=== PATIENT | male | born 1965 | race Caucasian/White ===

== ENCOUNTER → 2016-06-01 | Outpatient (REF) | payer MEDICARE | LOC: M LABDRWSH 15:37 | PROVIDERS: ATTEND Family Medicine | DX: R73.03 Prediabetes (principal); Z79.899 Other long term (current) drug therapy ==

== ENCOUNTER → 2016-07-11 | Outpatient (REF) | payer MEDICARE | LOC: M LAB REF 20:20 | PROVIDERS: ATTEND Physician Assistant | DX: M54.5 Low back pain (principal); N39.0 Urinary tract infection, site not specified ==

== ENCOUNTER → 2016-08-07 | Outpatient (REF) | payer MEDICARE ==
[2016-08-07 15:41] LABS: ALBUMIN 3.9 GM/DL (3.2-5.2); ALBUMIN/GLOBULIN RATIO 1.39 (1.00-1.93); BILIRUBIN,DIRECT 0.1 MG/DL (0.0-0.2); BILIRUBIN,TOTAL 0.3 MG/DL (0.2-1.0); TOTAL PROTEIN 6.7 GM/DL (6.4-8.2)
== END ==
LOC: M LABDRWSH 14:35
PROVIDERS: ATTEND Internal Medicine Gastroenterology
DX: R10.9 Unspecified abdominal pain (principal); R14.0 Abdominal distension (gaseous); K22.70 Barrett's esophagus without dysplasia

== ENCOUNTER → 2016-08-12 | Outpatient (CLI) | payer MEDICARE ==
[~2016-08-12] MED LIST: ISOVUE-370 76% 100ML VIAL (Q9967) As Ordered ONE
--- NOTE | 2016-08-12 10:37 | REP ---
MAXILLOFACIAL CT WITH CONTRAST: HISTORY: Right periorbital cellulitis. CONTRAST: Isovue 370, 75 mL. A left Tsering cell is present. Minimal mucosal thickening is present in the right maxillary sinus. The remaining sinuses are clear. The ostiomeatal units are patent. The middle and inferior nasal turbinates are partially paradoxical. There is minimal deviation of the nasal septum to the right superiorly and to the left inferiorly. A small spur is present arising from the left side of the nasal septum. This abuts the left middle and inferior nasal turbinates. The cribriform plate, medial alves of the orbits and optic canals are intact. The carotid canals form a segment of the posterolateral alves of the sphenoid sinus. Preseptal soft tissue swelling is present on the right. The contents of the orbits are normal Calcification is present in the left tonsil. This is secondary to previous inflammatory disease. Small lymph nodes less than 1 cm in size are present in the internal jugular chains, posterior triangles, submandibular and submental areas. IMPRESSION: 1. There is no acute or chronic sinusitis. 2. Right preseptal soft tissue swelling. Signed by Mario Negro MD 08/12/2016 10:45 A
== END ==
LOC: M RAD 09:45
PROVIDERS: ATTEND Family Medicine
DX: L03.213 Periorbital cellulitis (principal); R10.9 Unspecified abdominal pain; R14.0 Abdominal distension (gaseous); K22.70 Barrett's esophagus without dysplasia
CPT/HCPCS: 70487; 87338; 96372; G0463; Q9967

== ENCOUNTER → 2017-12-04 | Outpatient (CLI) | payer MEDICARE ==
[2017-12-04 12:41] LABS: BASO % 0.2 % (0.0-1.0); EOS # 0.1 10^3/uL (0.0-0.50); EOS % 1.3 % (0.0-3.0); HEMATOCRIT 44.6 % (42.0-52.0); HEMOGLOBIN 15.3 g/dl (13.5-17.5); IMMATURE GRANULOCYTE % 0.3 % (0-3.0); LYMPH # 2.4 10^3/uL (1.5-4.5); LYMPH % 26.2 % (24.0-44.0); MEAN CORPUSCULAR HEMOGLOBIN 31.1 pg (27.0-33.0); MEAN CORPUSCULAR HGB CONC 34.3 g/dl (32.0-36.5); MEAN CORPUSCULAR VOLUME 90.7 fl (80.0-96.0); MONO # 0.9 10^3/uL (0.0-0.8); MONO % 9.6 % (0.0-5.0); NEUTROPHILS # 5.7 10^3/uL (1.8-7.7); NEUTROPHILS % 62.4 % (36.0-66.0); PLATELET COUNT, AUTOMATED 204 10^3/uL (150-450); RED BLOOD COUNT 4.92 10^6/uL (4.30-6.10); RED CELL DISTRIBUTION WIDTH 13.8 % (11.5-14.5); WHITE BLOOD COUNT 9.1 10^3/uL (4.0-10.0)
[2017-12-04 13:00] LABS: ERYTHROCYTE SEDIMENTATION RATE 8 mm/hr (0-20)
[2017-12-04 13:03] LABS: ANION GAP 8 MEQ/L (8-16); BLOOD UREA NITROGEN 13 MG/DL (7-18); CALCIUM LEVEL 9.2 MG/DL (8.5-10.1); CARBON DIOXIDE LEVEL 31 MEQ/L (21-32); CHLORIDE LEVEL 105 MEQ/L (98-107); CREATININE FOR GFR 1.14 MG/DL (0.70-1.30); GLOMERULAR FILTRATION RATE > 60.0 (>56); GLUCOSE, FASTING 91 MG/DL (70-100); POTASSIUM SERUM 4.5 MEQ/L (3.5-5.1); SODIUM LEVEL 144 MEQ/L (136-145)
== END ==
LOC: M LAB 12:22
DX: R07.1 Chest pain on breathing (principal)
CPT/HCPCS: 71046

== ENCOUNTER → 2018-04-21 | Outpatient (REF) | payer MEDICARE | LOC: M SFHCPLAZ 15:26 | DX: R19.7 Diarrhea, unspecified (principal) ==

== ENCOUNTER → 2018-04-21 | Outpatient (CLI) | payer MEDICARE ==
[2018-04-21 19:15] LABS: ALBUMIN 4.3 GM/DL (3.2-5.2); ALT/SGPT 21 U/L (12-78); BILIRUBIN,TOTAL 0.2 MG/DL (0.2-1.0); BLOOD UREA NITROGEN 15 MG/DL (7-18); C REACTIVE PROTEIN QUANTITATIV < 0.30 MG/DL (0.00-0.30); CALCIUM LEVEL 9.3 MG/DL (8.5-10.1); CARBON DIOXIDE LEVEL 30 MEQ/L (21-32); CHLORIDE LEVEL 105 MEQ/L (98-107); CREATININE FOR GFR 1.17 MG/DL (0.70-1.30); GLOMERULAR FILTRATION RATE > 60.0 (>56); GLUCOSE, FASTING 126 MG/DL (70-100); POTASSIUM SERUM 4.3 MEQ/L (3.5-5.1); SODIUM LEVEL 140 MEQ/L (136-145); TOTAL PROTEIN 7.3 GM/DL (6.4-8.2)
== END ==
LOC: M LAB 16:11
PROVIDERS: ATTEND Student in an Organized Health Care Education/Training Program
DX: R19.7 Diarrhea, unspecified (principal)

== ENCOUNTER → 2018-04-25 | Outpatient (REF) | payer MEDICARE | LOC: M LAB REF 13:35 | DX: R19.7 Diarrhea, unspecified (principal) ==

== ENCOUNTER → 2018-05-05 | Outpatient (CLI) | payer MEDICARE ==
[2018-05-06 09:51] LABS: APPEARANCE, URINE CLEAR (CLEAR); BACTERIA, URINE AUTO NEGATIVE (NEGATIVE); BILIRUBIN, URINE AUTO NEGATIVE (NEGATIVE); BLOOD, URINE BLOOD NEGATIVE (NEGATIVE); COLOR, URINE STRAW (YELLOW); GLUCOSE, URINE (UA) AUTO NEGATIVE (NEGATIVE); KETONE, URINE AUTO NEGATIVE (NEGATIVE); LEUKOCYTE ESTERASE, URINE AUTO NEGATIVE (NEGATIVE); NITRITE, URINE AUTO NEGATIVE (NEGATIVE); PROTEIN, URINE AUTO NEGATIVE (NEGATIVE); RBC, URINE AUTO 1 /HPF (0-3); SPECIFIC GRAVITY URINE AUTO 1.005 (1.002-1.035); SQUAMOUS EPITHELIAL CELL UR AU 0 /HPF (0-6); UROBILINOGEN, URINE AUTO 0.2 mg/dL (0.0-2.0); WBC, URINE AUTO 0 /HPF (0-3)
[2018-05-10 15:26] LABS: ANCA-ATYPICAL <1:20 titer (Neg:<1:20); ANTI-SACCHAROMYCES CEREV. IgA <20.0 Units (0.0-24.9); ANTI-SACCHAROMYCES CEREV. IgG 22.7 Units (0.0-24.9); CYTOPLASMIC NEUTROP AB ANCA-C <1:20 titer (Neg:<1:20); PERINUCLEAR AB ANCA-P <1:20 titer (Neg:<1:20); TISSUE TRANSGLUTAMINASE IgA <2 U/mL (0-3)
== END ==
LOC: M LAB 17:07
PROVIDERS: ATTEND Student in an Organized Health Care Education/Training Program
DX: R10.31 Right lower quadrant pain (principal)
CPT/HCPCS: 36415; 81001; 86256; 86671; G0463

== ENCOUNTER → 2018-05-12 | Outpatient (REF) | payer MEDICARE | LOC: M SFHCPLAZ 14:17 | PROVIDERS: ATTEND Student in an Organized Health Care Education/Training Program | DX: R10.31 Right lower quadrant pain (principal) ==

== ENCOUNTER → 2018-07-05 | Outpatient (CLI) | payer MEDICARE ==
[2018-07-05 18:18] LABS: CHOLESTEROL RISK RATIO 4.794 (<5); PERCENT SATURATION 30.5 % (19.7-50.0)
[2018-07-08 10:15] LABS: ARSENIC BLOOD 4 ug/L (2-23); LEAD BLOOD 1 ug/dL (0-4); MERCURY BLOOD None Detected ug/L (0.0-14.9); TRANSFERRIN 214 mg/dL (200-370)
== END ==
LOC: M LAB 16:56
PROVIDERS: ATTEND Student in an Organized Health Care Education/Training Program
DX: R10.31 Right lower quadrant pain (principal); F17.210 Nicotine dependence, cigarettes, uncomplicated; K44.9 Diaphragmatic hernia without obstruction or gangrene; E78.5 Hyperlipidemia, unspecified; Z79.899 Other long term (current) drug therapy; Z87.19 Personal history of other diseases of the digestive system; G47.00 Insomnia, unspecified
CPT/HCPCS: 36415; 80061; 82150; 82175; 82728; 83550; 83655; 83690; 83825; 84466; 84600; G0480

== ENCOUNTER 2019-04-07 14:02 | Emergency (ER) | payer MEDICARE ==
[~2019-04-07] VITALS: Ht 170.2 cm; Wt 68.2 kg
[2019-04-07] MEDS ORDERED: PANT40TA3 (14:10)
[2019-04-07] MEDS ORDERED: HYDR4TAB (14:10)
[2019-04-07] MEDS ORDERED: LIDOCAINE 5% (LIDODERM) PATCH TD ONE (14:30)
[2019-04-07] MEDS ORDERED: KETOROLAC 30 MG/ML VIAL (J1885) IM ONE (14:30)
[2019-04-07] MEDS ORDERED: diazePAM 5 MG TAB PO ONE (14:30)
[2019-04-07 14:55] LABS: BASO % 0.4 % (0.0-1.0); EOS # 0.2 10^3/uL (0.0-0.5); EOS % 1.8 % (0.0-3.0); HEMATOCRIT 43.8 % (42.0-52.0); HEMOGLOBIN 14.6 g/dl (13.5-17.5); LYMPH # 2.3 10^3/uL (1.5-5.0); LYMPH % 27.1 % (24.0-44.0); MEAN CORPUSCULAR HEMOGLOBIN 30.5 pg (27.0-33.0); MEAN CORPUSCULAR HGB CONC 33.3 g/dl (32.0-36.5); MEAN CORPUSCULAR VOLUME 91.6 fl (80.0-96.0); MONO # 0.9 10^3/uL (0.0-0.8); MONO % 10.4 % (0.0-5.0); NEUTROPHILS % 60.1 % (36.0-66.0); PLATELET COUNT, AUTOMATED 208 10^3/uL (150-450); RED BLOOD COUNT 4.78 10^6/uL (4.30-6.10); WHITE BLOOD COUNT 8.4 10^3/uL (4.0-10.0)
[2019-04-07 15:17] LABS: ERYTHROCYTE SEDIMENTATION RATE 11 mm/hr (0-20)
[2019-04-07 15:49] LABS: APPEARANCE, URINE CLEAR (CLEAR); BACTERIA, URINE AUTO NEGATIVE (NEGATIVE); BILIRUBIN, URINE AUTO NEGATIVE (NEGATIVE); BLOOD, URINE BLOOD NEGATIVE (NEGATIVE); COLOR, URINE YELLOW (YELLOW); GLUCOSE, URINE (UA) AUTO NEGATIVE (NEGATIVE); KETONE, URINE AUTO TRACE mg/dL (NEGATIVE); LEUKOCYTE ESTERASE, URINE AUTO NEGATIVE (NEGATIVE); NITRITE, URINE AUTO NEGATIVE (NEGATIVE); PROTEIN, URINE AUTO NEGATIVE (NEGATIVE); RBC, URINE AUTO 1 /HPF (0-3); SPECIFIC GRAVITY URINE AUTO 1.017 (1.002-1.035); SQUAMOUS EPITHELIAL CELL UR AU 0 /HPF (0-6); UROBILINOGEN, URINE AUTO 0.2 mg/dL (0.0-2.0); WBC, URINE AUTO 0 /HPF (0-3)
[2019-04-07 15:53] VITALS: BP 137/70
[2019-04-07] MEDS ORDERED: **NOTE PATIENT COMMENT** MISC XX SCH (21:00)
== END 2019-04-07 16:06 | disposition home or self-care (01) ==
LOC: M ED 14:02
DX: M54.16 Radiculopathy, lumbar region (principal); F17.210 Nicotine dependence, cigarettes, uncomplicated
CPT/HCPCS: 36415; 81001; 85025; 85652; 86140; 96372; 99283; J1885

== ENCOUNTER → 2019-06-09 | Outpatient (CLI) | payer MEDICARE ==
[~2019-06-09] MED LIST changes: +HYDR4TAB; -ISOVUE-370 76% 100ML VIAL (Q9967) As Ordered ONE; +PANT40TA3
[2019-06-09 16:56] LABS: BILIRUBIN,TOTAL 0.2 MG/DL (0.2-1.0); CALCIUM LEVEL 9.1 MG/DL (8.5-10.1); CHOLESTEROL RISK RATIO 4.062 (<5); CREATININE FOR GFR 1.36 MG/DL (0.70-1.30); GLOMERULAR FILTRATION RATE 58.6 (>56); POTASSIUM SERUM 4.7 MEQ/L (3.5-5.1); TOTAL PROTEIN 7.1 GM/DL (6.4-8.2)
== END ==
LOC: M LAB 15:40
DX: Z86.39 Personal history of other endocrine, nutritional and metabolic disease (principal); Z79.899 Other long term (current) drug therapy

== ENCOUNTER → 2019-08-29 | Outpatient (CLI) | payer MEDICARE ==
[~2019-08-29] MED LIST changes: +PANT40TA29; -PANT40TA3
--- NOTE | 2019-08-29 15:06 | REP ---
MRI brain without contrast: History: Proximal headache. . Comparison study: No comparison brain MRI study. Technique: Axial and sagittal imaging planes are utilized for T1 and T2-weighted scans. Sequences include spin-echo, fast spin echo, FLAIR, and diffusion weighted sequences. MRI findings: No bony calvarial lesion is seen. Craniocervical junction and upper cervical cord are normal in appearance. There is no MR evidence of significant paranasal sinus disease. No intraorbital abnormality is seen. The lateral, third, and fourth ventricles are normal in size and position. Lacey-white differentiation pattern is intact above and below the tentorium. There is no evidence of intracranial hemorrhage. No mass, infarction, extra-axial fluid collection or midline shift is seen. No abnormal white matter lesion is seen. Impression: Negative noncontrast brain MRI study. Electronically Signed by Zay Clark MD 08/29/2019 02:58 P
== END ==
LOC: M RAD 13:36
PROVIDERS: ATTEND Obstetrics & Gynecology
DX: R51 Headache (principal)

== ENCOUNTER → 2020-05-06 | Outpatient (CLI) | payer MEDICARE ==
--- NOTE | 2020-05-06 15:51 | REPPI ---
INDICATION: G89.29 CHRONIC PAIN. COMPARISON: Comparison CT study thoracic spine September 20, 2014.. TECHNIQUE: Three views. FINDINGS: Subtle loss of anterior vertebral body height is noted on lateral radiographs at the T3 as seen on CT imaging from September 20, 2014 unchanged. There is mild discogenic spurring at the anterior aspect of the midthoracic vertebral bodies. Vertebral body heights are otherwise preserved. Alignment is normal. No paravertebral soft tissue mass is seen. The lungs are somewhat hyperinflated. Patient is status post lower cervical spine discectomy and fusion plating. Pedicles and posterior elements are intact. IMPRESSION: No acute abnormality. Mild old wedging anteriorly at T3. Status post is lower cervical spine fusion plating. Hyperinflation of the lung vigil noted incidentally. Mild degenerative disc changes. <Electronically signed by Michael Clark > 05/06/20 [id number]
--- NOTE | 2020-05-06 15:52 | REPPI ---
INDICATION: G89.29 CHRONIC PAIN. COMPARISON: None. TECHNIQUE: Five views. FINDINGS: Five views of the lumbar spine show straightening of the normal lumbar lordosis. Lumbar vertebral body heights are preserved. There is advanced degenerative disc disease at L4-5 with disc space narrowing, reactive sclerosis and anterior osteophyte formation. Less prominent discogenic spurring changes are noted at L3-4 and L2-3. There is no evidence of spondylolysis or spondylolisthesis. Pedicles and posterior elements are intact. Psoas margins appear intact. Sacrum and SI joints are unremarkable. No bony destructive lesion is seen. IMPRESSION: Degenerative disc disease changes most pronounced at L4-5 but also present at L3-4 and L2-3. Straightening. No acute abnormality. <Electronically signed by Michael Clark > 05/06/20 [id number]
== END ==
LOC: M PLAIMG 13:38
DX: M51.34 Other intervertebral disc degeneration, thoracic region (principal); M51.36 Other intervertebral disc degeneration, lumbar region; G89.29 Other chronic pain

== ENCOUNTER → 2020-05-06 | Outpatient (REF) | payer MEDICARE ==
[2020-05-06 18:37] LABS: APPEARANCE, URINE CLEAR (CLEAR); BACTERIA, URINE AUTO NEGATIVE (NEGATIVE); BILIRUBIN, URINE AUTO NEGATIVE (NEGATIVE); BLOOD, URINE BLOOD NEGATIVE (NEGATIVE); COLOR, URINE YELLOW (YELLOW); GLUCOSE, URINE (UA) AUTO NEGATIVE (NEGATIVE); KETONE, URINE AUTO NEGATIVE (NEGATIVE); LEUKOCYTE ESTERASE, URINE AUTO NEGATIVE (NEGATIVE); NITRITE, URINE AUTO NEGATIVE (NEGATIVE); PROTEIN, URINE AUTO NEGATIVE (NEGATIVE); RBC, URINE AUTO 0 /HPF (0-3); SPECIFIC GRAVITY URINE AUTO 1.009 (1.002-1.035); SQUAMOUS EPITHELIAL CELL UR AU 0 /HPF (0-6); UROBILINOGEN, URINE AUTO 0.2 mg/dL (0.0-2.0); WBC, URINE AUTO 0 /HPF (0-3)
== END ==
LOC: M SFHCPLAZ 13:27
PROVIDERS: ATTEND Family Medicine
DX: G89.29 Other chronic pain (principal)

== ENCOUNTER → 2020-05-17 | Outpatient (CLI) | payer MEDICARE ==
--- NOTE | 2020-05-17 11:02 | REPVR ---
PROCEDURE INFORMATION: Exam: MR Lumbar Spine Without Contrast. Exam date and time: 05/17/2020 10:49 AM Age: 54 years old Clinical indication: Other: Ddd lumbar w/ chronic pain ? cord compression TECHNIQUE: Imaging protocol: Multiplanar magnetic resonance images of the lumbar spine without intravenous contrast. COMPARISON: CR SPINE LS COMPLETE 05/06/2020 2:02 PM FINDINGS: Vertebrae: There is no fracture or listhesis. There are pronounced endplate signal changes at L4/5, with severe intervertebral disc space loss. Spinal cord: Normal signal. No cord compression. L1-L2: No significant disc disease. No significant spinal canal stenosis. No neural foraminal stenosis. L2-L3: No significant disc disease. No significant spinal canal stenosis. No neural foraminal stenosis. L3-L4: There is diffuse disc bulging. There is mild facet and ligamentous hypertrophy. There is mild bilateral neural foraminal narrowing. L4-L5: There is diffuse disc bulging. There is mild facet and ligamentous hypertrophy. There is moderate to severe right and mild left neural foraminal narrowing. L5-S1: There is diffuse disc bulging. There is mild facet hypertrophy. There is [id number] bilateral neural foraminal narrowing. Soft tissues: Unremarkable. IMPRESSION: 1. Pronounced endplate signal changes at L4/5, with severe intervertebral disc space loss. Although these findings may be degenerative in nature, discitis/osteomyelitis could have a similar appearance in the appropriate clinical setting. 2. Degenerative disc disease and spondylosis. At L4/5, disc bulging asymmetric to the right contributes to moderate to severe right neural foraminal narrowing, with potential compromise of the exiting right L4 nerve root. Electronically signed by: Allison Weston On 05/17/2020 11:02:33 AM
== END ==
LOC: M PLARAD 09:28
DX: M51.36 Other intervertebral disc degeneration, lumbar region (principal); G89.29 Other chronic pain

== ENCOUNTER → 2020-05-22 | Outpatient (CLI) | payer MEDICARE ==
[2020-05-22 18:23] LABS: BASO % 0.4 % (0.0-1.0); EOS # 0.1 10^3/uL (0.0-0.5); EOS % 1.1 % (0.0-3.0); HEMATOCRIT 41.9 % (42.0-52.0); HEMOGLOBIN 13.6 g/dl (13.5-17.5); LYMPH # 1.9 10^3/uL (1.5-5.0); MEAN CORPUSCULAR HEMOGLOBIN 29.4 pg (27.0-33.0); MEAN CORPUSCULAR HGB CONC 32.5 g/dl (32.0-36.5); MEAN CORPUSCULAR VOLUME 90.7 fl (80.0-96.0); MONO # 0.5 10^3/uL (0.0-0.8); MONO % 7.3 % (0.0-5.0); NEUTROPHILS # 4.9 10^3/uL (1.5-8.5); NEUTROPHILS % 65.9 % (36.0-66.0); PLATELET COUNT, AUTOMATED 224 10^3/uL (150-450); RED BLOOD COUNT 4.62 10^6/uL (4.30-6.10); WHITE BLOOD COUNT 7.4 10^3/uL (4.0-10.0)
[2020-05-22 19:11] LABS: ERYTHROCYTE SEDIMENTATION RATE 6 mm/hr (0-20)
== END ==
LOC: M LAB 16:08
DX: R93.89 Abnormal findings on diagnostic imaging of other specified body structures (principal); Z79.899 Other long term (current) drug therapy

== ENCOUNTER → 2020-06-17 | Outpatient (REF) | payer MEDICARE ==
[2020-06-17 15:24] LABS: APPEARANCE, URINE CLEAR (CLEAR); BACTERIA, URINE AUTO NEGATIVE (NEGATIVE); BILIRUBIN, URINE AUTO NEGATIVE (NEGATIVE); BLOOD, URINE BLOOD NEGATIVE (NEGATIVE); COLOR, URINE YELLOW (YELLOW); GLUCOSE, URINE (UA) AUTO NEGATIVE (NEGATIVE); KETONE, URINE AUTO NEGATIVE (NEGATIVE); LEUKOCYTE ESTERASE, URINE AUTO NEGATIVE (NEGATIVE); MUCUS, URINE SMALL (NEGATIVE); NITRITE, URINE AUTO NEGATIVE (NEGATIVE); PROTEIN, URINE AUTO NEGATIVE (NEGATIVE); RBC, URINE AUTO 0 /HPF (0-3); SPECIFIC GRAVITY URINE AUTO 1.014 (1.002-1.035); SQUAMOUS EPITHELIAL CELL UR AU 0 /HPF (0-6); UROBILINOGEN, URINE AUTO 0.2 mg/dL (0.0-2.0); WBC, URINE AUTO 0 /HPF (0-3)
[2020-06-17 16:09] LABS: BLOOD UREA NITROGEN 12 MG/DL (7-18); CALCIUM LEVEL 8.8 MG/DL (8.5-10.1); CARBON DIOXIDE LEVEL 29 MEQ/L (21-32); CHLORIDE LEVEL 104 MEQ/L (98-107); CREATININE FOR GFR 1.23 MG/DL (0.70-1.30); GLOMERULAR FILTRATION RATE > 60.0 (>56); GLUCOSE, FASTING 160 MG/DL (70-100); POTASSIUM SERUM 3.6 MEQ/L (3.5-5.1); SODIUM LEVEL 139 MEQ/L (136-145)
== END ==
LOC: M SFHCPLAZ 14:16
DX: R03.0 Elevated blood-pressure reading, without diagnosis of hypertension (principal); E07.9 Disorder of thyroid, unspecified

== ENCOUNTER → 2020-07-04 | Outpatient (REF) | payer MEDICARE ==
[2020-07-04 12:47] LABS: HEMATOCRIT 44.6 % (42.0-52.0); MEAN CORPUSCULAR HEMOGLOBIN 29.9 pg (27.0-33.0); MEAN CORPUSCULAR HGB CONC 33.6 g/dl (32.0-36.5); MEAN CORPUSCULAR VOLUME 88.8 fl (80.0-96.0); PLATELET COUNT, AUTOMATED 233 10^3/uL (150-450); RED BLOOD COUNT 5.02 10^6/uL (4.30-6.10); WHITE BLOOD COUNT 7.3 10^3/uL (4.0-10.0)
[2020-07-04 13:20] LABS: ERYTHROCYTE SEDIMENTATION RATE 6 mm/hr (0-20)
[2020-07-04 13:30] LABS: ALBUMIN 4.3 GM/DL (3.2-5.2); ALT/SGPT 17 U/L (12-78); BILIRUBIN,TOTAL 0.3 MG/DL (0.2-1.0); BLOOD UREA NITROGEN 15 MG/DL (7-18); CALCIUM LEVEL 9.4 MG/DL (8.5-10.1); CARBON DIOXIDE LEVEL 32 MEQ/L (21-32); CHLORIDE LEVEL 106 MEQ/L (98-107); CHOLESTEROL LEVEL 239 MG/DL (<200); CHOLESTEROL RISK RATIO 4.345 (<5); CREATININE FOR GFR 1.07 MG/DL (0.70-1.30); GLOMERULAR FILTRATION RATE > 60.0 (>56); GLUCOSE, FASTING 104 MG/DL (70-100); HDL CHOLESTEROL 55 MG/DL (>40); LDL CHOLESTEROL 172 MG/DL (<100); NON-HDL-C 184 MG/DL; POTASSIUM SERUM 5.3 MEQ/L (3.5-5.1); SODIUM LEVEL 142 MEQ/L (136-145); TOTAL PROTEIN 7.2 GM/DL (6.4-8.2); TRIGLYCERIDES LEVEL 61 MG/DL (<150)
== END ==
LOC: M SFHCADAM 10:56
PROVIDERS: ATTEND Family Medicine
DX: E78.5 Hyperlipidemia, unspecified (principal); R93.7 Abnormal findings on diagnostic imaging of other parts of musculoskeletal system; R06.02 Shortness of breath; F32.2 Major depressive disorder, single episode, severe without psychotic features; Z12.5 Encounter for screening for malignant neoplasm of prostate; F17.290 Nicotine dependence, other tobacco product, uncomplicated
CPT/HCPCS: 80053; 80061; 84439; 84443; 85027; 85652; 86140; 99406; G0103; G0463

== ENCOUNTER → 2020-07-12 | Outpatient (CLI) | payer MEDICARE | LOC: M LABSMTC 11:55 | DX: Z01.812 Encounter for preprocedural laboratory examination (principal); Z20.822 Contact with and (suspected) exposure to COVID-19; M47.26 Other spondylosis with radiculopathy, lumbar region ==

== ENCOUNTER → 2020-07-24 | Outpatient (CLI) | payer MEDICARE ==
--- NOTE | 2020-07-24 09:45 | PFTRPT ---
Height: 67.00 Inches Weight: 148.00 Lbs BSA: 1.78 Diagnosis: R06.02 DATE: 07/24/2020 ORDERING PHYSICIAN: Marquis Ontiveros MD Pre and post bronchodilator studies have excellent technical quality. Forced vital capacity is normal. FEV1 out of proportion. Obstructive index is therefore reduced. Expiratory limit of the flow-volume loop consistent with flow rate limitation. No significant bronchodilator response is identified. Total lung capacity is mildly elevated. Residual volume borderline for air trapping. Diffusing capacity is reduced and does not correct for alveolar volume. No hemoglobin available for correction. Airway resistance and conductance are normal. IMPRESSION: Mild to moderate obstructive ventilatory impairment with borderline air trapping and diffusing capacity impairment. No bronchodilator response. MTDD
== END ==
LOC: M CARPUL 08:46
PROVIDERS: ATTEND Family Medicine
DX: R06.02 Shortness of breath (principal)

== ENCOUNTER → 2020-08-20 | Outpatient (CLI) | payer MEDICARE ==
--- NOTE | 2020-08-20 12:12 | REP ---
INDICATION: DYSPNEA ON EXERTION COMPARISON: 12/04/2017. TECHNIQUE: PA/Lateral FINDINGS: Lungs: Clear, no infiltrate. Heart: Normal in size. Mediastinum: Mediastinal silhouette unremarkable. Pleural angles: Unremarkable.. Bones and soft tissues: Unremarkable. IMPRESSION: No acute pulmonary disease. <Electronically signed by Rell Lacey > 08/20/20 [id number]
== END ==
LOC: M WUC 11:39
PROVIDERS: ATTEND Family Medicine
DX: R06.00 Dyspnea, unspecified (principal)

== ENCOUNTER → 2020-08-22 | Outpatient (CLI) | payer MEDICARE ==
--- NOTE | 2020-08-22 15:44 | REP ---
INDICATION: POST OP SEROMA postoperative seroma of musculoskeletal structure after musculoskeletal procedure. Patient reports recent removal of a battery from the right side of the back. Checking scar site. COMPARISON: Comparison CT study 02 April 2016.. TECHNIQUE: Helical scanning is acquired and 3 mm axial images were reformatted. Coronal and sagittal MPR images were generated and reviewed. 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 There is degenerative disc disease at L4-5. The lung bases are clear on axial CT images. The liver and the spleen are normal in size homogeneous in texture. No abnormality is noted in the pancreas. Normal adrenal glands are seen. The kidneys are morphologically intact. Vascular calcification is noted in a normal caliber aorta. A normal retrocecal appendix is seen. Small and large bowel loops are unremarkable in the abdomen and pelvis. No abdominal wall defect is seen. Prior CT study from 2016 showed a implanted power plant with subcutaneous stimulator leads in place. This has been removed. The power plant was in the right anterolateral mid abdomen and the subcutaneous leads terminated over the mid lumbar spine just to the right of midline. On today's CT study there is no evidence of any retained lead fragment. There is no evidence of hematoma or seroma. No abnormal fluid collection is seen. Multiplanar re-formation bone window setting images demonstrate advanced degenerative disc disease at L4-5 with sclerosis and spur formation unchanged from the 2016 study. IMPRESSION: Status post neurostimulator removal. No evidence of hematoma or seroma. Fairly advanced degenerative disc disease is noted in the L4-5 level in the lumbar spine unchanged. <Electronically signed by Michael Clark > 08/22/20 [id number]
== END ==
LOC: M RAD 14:13
PROVIDERS: ATTEND Family Medicine
DX: M96.842 Postprocedural seroma of a musculoskeletal structure following a musculoskeletal system procedure (principal)

== ENCOUNTER → 2020-09-17 | Outpatient (CLI) | payer MEDICARE ==
--- NOTE | 2020-09-17 15:29 | REP ---
INDICATION: NICOTINE DEPENDENCE COMPARISON: 11/30/2008 TECHNIQUE: Axial noncontrast images from the thoracic inlet to the upper abdomen using low-dose lung screening technique (LDCT). FINDINGS: Lung vigil are well aerated and few scattered small non solid densities measuring up to approximately 4 mm are identified. No consolidation or further suspicious nodule or mass lesion appreciated. No pleural effusion. Tracheobronchial tree is patent. IMPRESSION: Lung-RADS category 2. Management recommendations include annual low-dose CT surveillance. <Electronically signed by Elkin Roberts > 09/17/20 [id number]
== END ==
LOC: M RAD 13:49
PROVIDERS: ATTEND Physician Assistant
DX: Z12.2 Encounter for screening for malignant neoplasm of respiratory organs (principal); F17.200 Nicotine dependence, unspecified, uncomplicated

== ENCOUNTER → 2020-11-26 | Outpatient (REF) | payer MEDICARE ==
[2020-11-26 19:59] LABS: ALBUMIN 4.2 GM/DL (3.2-5.2); ALT/SGPT 22 U/L (12-78); BILIRUBIN,TOTAL 0.4 MG/DL (0.2-1.0); BLOOD UREA NITROGEN 13 MG/DL (7-18); CALCIUM LEVEL 9.6 MG/DL (8.5-10.1); CARBON DIOXIDE LEVEL 32 MEQ/L (21-32); CHLORIDE LEVEL 105 MEQ/L (98-107); CHOLESTEROL LEVEL 170 MG/DL (<200); CREATININE FOR GFR 1.12 MG/DL (0.70-1.30); GLOMERULAR FILTRATION RATE > 60.0 (>56); GLUCOSE, FASTING 86 MG/DL (70-100); HDL CHOLESTEROL 55 MG/DL (>40); LDL CHOLESTEROL 97 MG/DL (<100); NON-HDL-C 115 MG/DL; POTASSIUM SERUM 4.3 MEQ/L (3.5-5.1); SODIUM LEVEL 142 MEQ/L (136-145); TOTAL PROTEIN 7.1 GM/DL (6.4-8.2); TRIGLYCERIDES LEVEL 89 MG/DL (<150)
== END ==
LOC: M SFHCADAM 15:13
PROVIDERS: ATTEND Family Medicine
DX: E78.5 Hyperlipidemia, unspecified (principal)
CPT/HCPCS: 80053; 80061; G0463

== ENCOUNTER → 2021-05-22 | Outpatient (REF) | payer MEDICARE ==
[2021-05-22 16:47] LABS: ALT/SGPT 20 U/L (12-78); BILIRUBIN,TOTAL 0.2 MG/DL (0.2-1.0); BLOOD UREA NITROGEN 13 MG/DL (7-18); CALCIUM LEVEL 9.3 MG/DL (8.5-10.1); CARBON DIOXIDE LEVEL 31 MEQ/L (21-32); CHLORIDE LEVEL 106 MEQ/L (98-107); CHOLESTEROL LEVEL 143 MG/DL (<200); CHOLESTEROL RISK RATIO 3.042 (<5); CREATININE FOR GFR 1.16 MG/DL (0.70-1.30); GLOMERULAR FILTRATION RATE > 60.0 (>56); GLUCOSE, FASTING 116 MG/DL (70-100); HDL CHOLESTEROL 47 MG/DL (>40); LDL CHOLESTEROL 86 MG/DL (<100); NON-HDL-C 96 MG/DL; POTASSIUM SERUM 4.5 MEQ/L (3.5-5.1); SODIUM LEVEL 139 MEQ/L (136-145); TOTAL PROTEIN 6.8 GM/DL (6.4-8.2); TRIGLYCERIDES LEVEL 51 MG/DL (<150)
== END ==
LOC: M SFHCADAM 13:14
PROVIDERS: ATTEND Family Medicine
DX: E78.5 Hyperlipidemia, unspecified (principal)

== ENCOUNTER → 2021-07-01 | Outpatient (REF) | payer MEDICARE ==
[2021-07-01 13:10] LABS: APPEARANCE, URINE CLEAR (CLEAR); BACTERIA, URINE AUTO NEGATIVE (NEGATIVE); BILIRUBIN, URINE AUTO NEGATIVE (NEGATIVE); BLOOD, URINE BLOOD NEGATIVE (NEGATIVE); COLOR, URINE YELLOW (YELLOW); GLUCOSE, URINE (UA) AUTO NEGATIVE (NEGATIVE); KETONE, URINE AUTO NEGATIVE (NEGATIVE); LEUKOCYTE ESTERASE, URINE AUTO NEGATIVE (NEGATIVE); NITRITE, URINE AUTO NEGATIVE (NEGATIVE); PROTEIN, URINE AUTO NEGATIVE (NEGATIVE); RBC, URINE AUTO 0 /HPF (0-3); SPECIFIC GRAVITY URINE AUTO 1.009 (1.002-1.035); SQUAMOUS EPITHELIAL CELL UR AU 0 /HPF (0-6); UROBILINOGEN, URINE AUTO 0.2 mg/dL (0.0-2.0); WBC, URINE AUTO 0 /HPF (0-3)
[2021-07-01 13:22] LABS: BASO % 0.3 % (0.0-1.0); EOS # 0.1 10^3/uL (0.0-0.5); HEMATOCRIT 45.7 % (42.0-52.0); HEMOGLOBIN 15.2 g/dl (13.5-17.5); LYMPH # 2.2 10^3/uL (1.5-5.0); LYMPH % 22.2 % (24.0-44.0); MEAN CORPUSCULAR HEMOGLOBIN 30.3 pg (27.0-33.0); MEAN CORPUSCULAR HGB CONC 33.3 g/dl (32.0-36.5); MEAN CORPUSCULAR VOLUME 91.2 fl (80.0-96.0); MONO # 0.8 10^3/uL (0.0-0.8); MONO % 8.2 % (2.0-8.0); NEUTROPHILS # 6.7 10^3/uL (1.5-8.5); NEUTROPHILS % 68.1 % (36.0-66.0); PLATELET COUNT, AUTOMATED 238 10^3/uL (150-450); RED BLOOD COUNT 5.01 10^6/uL (4.30-6.10); WHITE BLOOD COUNT 9.8 10^3/uL (4.0-10.0)
[2021-07-01 13:31] LABS: INR 1.01; PROTHROMBIN TIME 13.7 SECONDS (12.7-14.5)
[2021-07-01 14:47] LABS: BLOOD UREA NITROGEN 13 MG/DL (7-18); CALCIUM LEVEL 9.7 MG/DL (8.5-10.1); CARBON DIOXIDE LEVEL 34 MEQ/L (21-32); CHLORIDE LEVEL 104 MEQ/L (98-107); GLOMERULAR FILTRATION RATE > 60.0 (>56); GLUCOSE, FASTING 100 MG/DL (70-100); POTASSIUM SERUM 4.3 MEQ/L (3.5-5.1); SODIUM LEVEL 142 MEQ/L (136-145)
== END ==
LOC: M SFHCADAM 10:27
PROVIDERS: ATTEND Family Medicine
DX: Z01.818 Encounter for other preprocedural examination (principal); J43.8 Other emphysema

== ENCOUNTER → 2021-07-01 | Outpatient (CLI) | payer MEDICARE | LOC: M ADAMS 10:35 | PROVIDERS: ATTEND Family Medicine | DX: Z01.818 Encounter for other preprocedural examination (principal); K22.70 Barrett's esophagus without dysplasia; J43.8 Other emphysema; Z79.899 Other long term (current) drug therapy ==

== ENCOUNTER 2021-08-29 19:35 | Emergency (ER) | payer MEDICARE ==
[~2021-08-29] VITALS: Ht 170.2 cm; Wt 72.7 kg
[2021-08-29] MEDS ORDERED: GABA-283 PO (20:18)
[2021-08-29] MEDS ORDERED: ATOR40TA75 PO (20:20)
[2021-08-29] MEDS ORDERED: METH-1164 PO (20:20)
[2021-08-29] MEDS ORDERED: CYCL-707 PO (20:20)
[2021-08-29] MEDS ORDERED: LAMO100T3 PO (20:20)
[2021-08-29 20:21] VITALS: BP 137/69
[2021-08-30] MEDS ORDERED: MEDR4PAK PO (01:05)
== END 2021-08-30 01:22 | disposition home or self-care (01) ==
LOC: M ED 19:35
DX: S30.0XXA Contusion of lower back and pelvis, initial encounter (principal); M54.30 Sciatica, unspecified side; W18.30XA Fall on same level, unspecified, initial encounter

== ENCOUNTER → 2021-09-30 | Outpatient (CLI) | payer MEDICARE ==
[~2021-09-30] MED LIST changes: +ATOR40TA75 PO; +CYCL-707 PO; +GABA-283 PO; +LAMO100T3 PO; +MEDR4PAK PO; +METH-1164 PO
== END ==
LOC: M RAD 13:07
PROVIDERS: ATTEND Physician Assistant
DX: Z12.2 Encounter for screening for malignant neoplasm of respiratory organs (principal); Z87.891 Personal history of nicotine dependence

== ENCOUNTER → 2021-10-14 | Outpatient (REF) | payer MEDICARE | LOC: M LAB REF 16:30 | PROVIDERS: ATTEND Physician Assistant Medical | DX: J02.9 Acute pharyngitis, unspecified (principal) ==

== ENCOUNTER → 2022-02-16 | Outpatient (REF) | payer MEDICARE ==
[2022-02-16 17:57] LABS: ALBUMIN 4.2 GM/DL (3.2-5.2); ALT/SGPT 28 U/L (12-78); BILIRUBIN,TOTAL 0.4 MG/DL (0.2-1.0); BLOOD UREA NITROGEN 20 MG/DL (7-18); CALCIUM LEVEL 9.3 MG/DL (8.5-10.1); CARBON DIOXIDE LEVEL 29 MEQ/L (21-32); CHLORIDE LEVEL 102 MEQ/L (98-107); CHOLESTEROL LEVEL 161 MG/DL (<200); CHOLESTEROL RISK RATIO 3.096 (<5); CREATININE FOR GFR 1.19 MG/DL (0.70-1.30); GLOMERULAR FILTRATION RATE > 60.0 (>56); GLUCOSE, FASTING 142 MG/DL (70-100); HDL CHOLESTEROL 52 MG/DL (>40); LDL CHOLESTEROL 94 MG/DL (<100); NON-HDL-C 109 MG/DL; POTASSIUM SERUM 4.4 MEQ/L (3.5-5.1); SODIUM LEVEL 137 MEQ/L (136-145); TOTAL PROTEIN 6.9 GM/DL (6.4-8.2); TRIGLYCERIDES LEVEL 74 MG/DL (<150)
== END ==
LOC: M SFHCADAM 11:45
PROVIDERS: ATTEND Family Medicine
DX: E78.5 Hyperlipidemia, unspecified (principal)

== ENCOUNTER → 2022-02-25 | Outpatient (REF) | payer MEDICARE ==
[2022-02-25 21:02] LABS: HEMOGLOBIN A1c 5.6 %
== END ==
LOC: M SFHCADAM 14:15
PROVIDERS: ATTEND Family Medicine
DX: R73.09 Other abnormal glucose (principal); E34.9 Endocrine disorder, unspecified

== ENCOUNTER → 2022-10-01 | Outpatient (CLI) | payer MEDICARE | LOC: M RAD 13:20 | PROVIDERS: ATTEND Family Medicine | DX: G90.01 Carotid sinus syncope (principal) ==

== ENCOUNTER → 2022-10-01 | Outpatient (CLI) | payer MEDICARE | LOC: M RAD 13:18 | PROVIDERS: ATTEND Physician Assistant | DX: M54.2 Cervicalgia (principal); Z87.891 Personal history of nicotine dependence ==

== ENCOUNTER → 2023-03-04 | Outpatient (REF) | payer MEDICARE ==
[~2023-03-04] MED LIST changes: -GABA-283 PO; +GABA-284 PO
[2023-03-04 18:41] LABS: HEMATOCRIT 44.6 % (42.0-52.0); HEMOGLOBIN 14.8 g/dl (13.5-17.5); MEAN CORPUSCULAR HEMOGLOBIN 30.8 pg (27.0-33.0); MEAN CORPUSCULAR HGB CONC 33.2 g/dl (32.0-36.5); MEAN CORPUSCULAR VOLUME 92.7 fl (80.0-96.0); PLATELET COUNT, AUTOMATED 238 10^3/uL (150-450); RED BLOOD COUNT 4.81 10^6/uL (4.30-6.10); WHITE BLOOD COUNT 8.6 10^3/uL (4.0-10.0)
[2023-03-04 19:05] LABS: ALBUMIN 4.3 G/DL (3.2-5.2); ALKALINE PHOSPHATASE 57 U/L (46-116); ALT/SGPT 27 U/L (7.0-40); AST/SGOT 28 U/L (<34); BILIRUBIN,TOTAL 0.3 MG/DL (0.3-1.2); BLOOD UREA NITROGEN 21 MG/DL (9-23); CALCIUM LEVEL 9.7 MG/DL (8.5-10.1); CARBON DIOXIDE LEVEL 32 MMOL/L (20-31); CHLORIDE LEVEL 106 MMOL/L (98-107); CHOLESTEROL LEVEL 167 MG/DL (<200); CHOLESTEROL RISK RATIO 3.35 (<5); CREATININE FOR GFR 1.28 MG/DL (0.70-1.30); GLOMERULAR FILTRATION RATE > 60.0 (>56); GLUCOSE, FASTING 52 MG/DL (60-100); HDL CHOLESTEROL 49.8 MG/DL (>40); LDL CHOLESTEROL 90.2 MG/DL (<100); NON-HDL-C 117.2 MG/DL; POTASSIUM SERUM 4.8 MMOL/L (3.5-5.1); SODIUM LEVEL 143 MMOL/L (136-145); TOTAL PROTEIN 6.8 G/DL (5.7-8.2); TRIGLYCERIDES LEVEL 135 MG/DL (<150)
== END ==
LOC: M SFHCADAM 15:07
PROVIDERS: ATTEND Family Medicine
DX: G90.01 Carotid sinus syncope (principal); E78.5 Hyperlipidemia, unspecified; Z12.5 Encounter for screening for malignant neoplasm of prostate
CPT/HCPCS: 80053; 80061; 85027; G0103

== ENCOUNTER 2023-06-17 09:11 | Day surgery (SDC) | payer MEDICARE ==
[~2023-06-17] VITALS: Ht 170.2 cm; Wt 73.1 kg
[~2023-06-17 09:11] MED LIST changes: +ALBU8.5H INH; +FLUT1BLS8 INH; +GABA-282 PO; +PANT40TA29 PO
[2023-06-17] MEDS: NS 1,000 ML IV ONE (09:36)
[2023-06-17] MEDS ORDERED: fentaNYL 100 MCG/2 ML INJECTION As Ordered ONE (10:45)
[2023-06-17] MEDS ORDERED: LIDOCAINE 2% 100MG/5ML SDV (FOR ANES.) As Ordered ONE (10:46)
[2023-06-17] MEDS ORDERED: propofoL 500 MG/50 ML VIAL As Ordered ONE (10:46)
[2023-06-17 11:55] VITALS: BP 112/66; O2SAT 97
== END 2023-06-17 11:57 | disposition home or self-care (01) ==
LOC: M OPP 09:11
PROVIDERS: ATTEND Internal Medicine Gastroenterology
DX: Z12.11 Encounter for screening for malignant neoplasm of colon (principal); D12.4 Benign neoplasm of descending colon; D12.3 Benign neoplasm of transverse colon; K57.30 Diverticulosis of large intestine without perforation or abscess without bleeding; K64.8 Other hemorrhoids; K29.60 Other gastritis without bleeding; R10.13 Epigastric pain; K21.9 Gastro-esophageal reflux disease without esophagitis; Z86.010 Personal history of colon polyps; E78.00 Pure hypercholesterolemia, unspecified; Z79.899 Other long term (current) drug therapy; Z79.51 Long term (current) use of inhaled steroids
CPT/HCPCS: 43239; 45385; 88305; J3010

== ENCOUNTER → 2023-08-12 | Outpatient (CLI) | payer MEDICARE | LOC: M RAD 09:37 | PROVIDERS: ATTEND Family Medicine | DX: N50.812 Left testicular pain (principal) ==

== ENCOUNTER → 2023-08-18 | Outpatient (CLI) | payer MEDICARE ==
[~2023-08-18] MED LIST changes: +GASTROGRAFIN SOLUTION 30ML ONE; +ISOVUE-370 76% 100ML VIAL ONE
== END ==
LOC: M PLAIMG 09:19
PROVIDERS: ATTEND Nurse Practitioner Family
DX: K29.60 Other gastritis without bleeding (principal)

== ENCOUNTER → 2023-08-18 | Outpatient (CLI) | payer MEDICARE ==
[~2023-08-18] MED LIST changes: -GASTROGRAFIN SOLUTION 30ML ONE; -ISOVUE-370 76% 100ML VIAL ONE
[2023-08-18 09:35] LABS: BLOOD UREA NITROGEN 23 MG/DL (9-23); CREATININE FOR GFR 1.29 MG/DL (0.70-1.30); GLOMERULAR FILTRATION RATE > 60.0 (>56)
== END ==
LOC: M LAB 08:32
PROVIDERS: ATTEND Nurse Practitioner Family
DX: K29.70 Gastritis, unspecified, without bleeding (principal)

== ENCOUNTER → 2023-09-16 | Outpatient (CLI) | payer MEDICARE | LOC: M LAB 09:38 | PROVIDERS: ATTEND Nurse Practitioner Family | DX: E16.4 Increased secretion of gastrin (principal) ==

== ENCOUNTER → 2023-10-07 | Outpatient (REF) | payer MEDICARE | LOC: M LAB REF 12:51 | PROVIDERS: ATTEND Internal Medicine Gastroenterology | DX: R93.89 Abnormal findings on diagnostic imaging of other specified body structures (principal); R12 Heartburn; R19.7 Diarrhea, unspecified ==

== ENCOUNTER → 2024-02-21 | Outpatient (CLI) | payer MEDICARE ==
[~2024-02-21] MED LIST changes: +GABA-1172 PO; -GABA-282 PO
[2024-02-21 12:09] LABS: HEMATOCRIT 43.6 % (42.0-52.0); HEMOGLOBIN 14.9 g/dl (13.5-17.5); MEAN CORPUSCULAR HEMOGLOBIN 31.8 pg (27.0-33.0); MEAN CORPUSCULAR HGB CONC 34.2 g/dl (32.0-36.5); PLATELET COUNT, AUTOMATED 217 10^3/uL (150-450); RED BLOOD COUNT 4.69 10^6/uL (4.30-6.10); WHITE BLOOD COUNT 7.8 10^3/uL (4.0-10.0)
[2024-02-21 12:12] LABS: PSA SCREENING 1.84 NG/ML (< 4.00)
[2024-02-21 12:15] LABS: ALBUMIN 3.9 G/DL (3.2-5.2); ALKALINE PHOSPHATASE 67 U/L (40-129); ALT/SGPT 20 U/L (7.0-40); AST/SGOT 20 U/L (<34); BILIRUBIN,TOTAL 0.5 MG/DL (0.3-1.2); BLOOD UREA NITROGEN 15 MG/DL (9-23); CALCIUM LEVEL 10.3 MG/DL (8.5-10.1); CARBON DIOXIDE LEVEL 32 MMOL/L (20-31); CHLORIDE LEVEL 105 MMOL/L (98-107); CHOLESTEROL LEVEL 214 MG/DL (<200); CREATININE FOR GFR 1.04 MG/DL (0.70-1.30); GLOMERULAR FILTRATION RATE > 60.0 (>56); GLUCOSE, FASTING 122 MG/DL (60-100); HDL CHOLESTEROL 71.1 MG/DL (>40); LDL CHOLESTEROL 126.1 MG/DL (<100); NON-HDL-C 142.9 MG/DL; POTASSIUM SERUM 4.4 MMOL/L (3.5-5.1); SODIUM LEVEL 142 MMOL/L (136-145); TOTAL PROTEIN 6.8 G/DL (5.7-8.2); TRIGLYCERIDES LEVEL 84 MG/DL (<150)
[2024-02-21 12:17] LABS: FREE T4 1.22 NG/DL (0.89-1.76); THYROID STIMULATING HORMONE 2.529 uIU/ML (0.55-4.78)
[2024-02-21 12:40] LABS: HEMOGLOBIN A1c 5.7 % (4.0-6.0)
== END ==
LOC: M WUC 09:30
PROVIDERS: ATTEND Family Medicine
DX: Z13.1 Encounter for screening for diabetes mellitus (principal); Z12.5 Encounter for screening for malignant neoplasm of prostate; N52.9 Male erectile dysfunction, unspecified; K22.70 Barrett's esophagus without dysplasia; J43.8 Other emphysema; E78.5 Hyperlipidemia, unspecified
CPT/HCPCS: 36415; 80053; 80061; 83036; 84402; 84403; 84439; 84443; 85027; G0103

== ENCOUNTER → 2024-02-25 | Outpatient (CLI) | payer MEDICARE ==
[~2024-02-25] MED LIST changes: +CREO12CA PO; +FLOM0.4C39 PO; +K2 P1TAB PO; +LIDO5TD TD; +MAGN400C PO; +POTA99CA2 PO; +VITA100T91 PO; +VITA500C24 PO; +[UNRECOGNIZED DRUG - OTHER] OU
== END ==
LOC: M WUC 11:26
PROVIDERS: ATTEND Family Medicine
DX: F32.2 Major depressive disorder, single episode, severe without psychotic features (principal)

== ENCOUNTER 2024-02-27 03:18 | Inpatient (IN) | payer MEDICARE ==
[~2024-02-27] VITALS: Ht 170.2 cm; Wt 63.0 kg
[~2024-02-27 03:18] MED LIST changes: -CREO12CA PO; -FLOM0.4C39 PO; -K2 P1TAB PO; -LIDO5TD TD; -MAGN400C PO; -POTA99CA2 PO; -VITA100T91 PO; -VITA500C24 PO; -[UNRECOGNIZED DRUG - OTHER] OU
[2024-02-27 03:56] LABS: HEMATOCRIT 44.2 % (42.0-52.0); HEMOGLOBIN 15.3 g/dl (13.5-17.5); MEAN CORPUSCULAR HEMOGLOBIN 31.7 pg (27.0-33.0); MEAN CORPUSCULAR HGB CONC 34.6 g/dl (32.0-36.5); MEAN CORPUSCULAR VOLUME 91.7 fl (80.0-96.0); PLATELET COUNT, AUTOMATED 224 10^3/uL (150-450); RED BLOOD COUNT 4.82 10^6/uL (4.30-6.10); WHITE BLOOD COUNT 8.8 10^3/uL (4.0-10.0)
[2024-02-27 04:10] LABS: ETHYL ALCOHOL (ETHANOL) 0.219 % (0.000-0.010)
[2024-02-27 04:11] LABS: SALICYLATE LEVEL < 3.0 MG/DL (<30)
[2024-02-27 04:12] LABS: ALBUMIN 4.3 G/DL (3.2-5.2); ALKALINE PHOSPHATASE 66 U/L (40-129); ALT/SGPT 21 U/L (7.0-40); AST/SGOT 25 U/L (<34); BILIRUBIN,DIRECT 0.1 MG/DL (<0.4); BILIRUBIN,TOTAL 0.4 MG/DL (0.3-1.2); BLOOD UREA NITROGEN 14 MG/DL (9-23); CARBON DIOXIDE LEVEL 26 MMOL/L (20-31); CHLORIDE LEVEL 110 MMOL/L (98-107); CREATININE FOR GFR 1.02 MG/DL (0.70-1.30); GLOMERULAR FILTRATION RATE > 60.0 (>56); GLUCOSE, FASTING 91 MG/DL (60-100); POTASSIUM SERUM 4.6 MMOL/L (3.5-5.1); SODIUM LEVEL 143 MMOL/L (136-145); TOTAL PROTEIN 7.5 G/DL (5.7-8.2)
[2024-02-27 04:16] LABS: THYROID STIMULATING HORMONE 7.211 uIU/ML (0.55-4.78)
[2024-02-27 05:19] LABS: FREE T4 1.57 NG/DL (0.89-1.76)
[2024-02-27 06:56] LABS: AMPHETAMINES LEVEL URINE NEGATIVE (NEGATIVE); BARBITURATES URINE NEGATIVE (NEGATIVE); BENZODIAZEPINES URINE NEGATIVE (NEGATIVE); COCAINE METABOLITE URINE NEGATIVE (NEGATIVE); METHADONE URINE NEGATIVE (NEGATIVE); OPIATES URINE NEGATIVE (NEGATIVE); PHENCYCLIDINE URINE NEGATIVE (NEGATIVE)
[2024-02-27 06:59] LABS: CANNABINOIDS URINE POSITIVE (NEGATIVE)
[2024-02-27] MEDS: FOLIC ACID 1MG TAB PO SCH ×2 (09:00→13:43)
[2024-02-27] MEDS ORDERED: K2 P1TAB PO (09:43)
[2024-02-27] MEDS ORDERED: MAGN400C PO (09:43)
[2024-02-27] MEDS ORDERED: VITA500C24 PO (09:43)
[2024-02-27] MEDS ORDERED: CREO12CA PO (09:43)
[2024-02-27] MEDS ORDERED: FLOM0.4C39 PO (09:43)
[2024-02-27] MEDS ORDERED: POTA99CA2 PO (09:43)
[2024-02-27] MEDS ORDERED: VITA100T91 PO (09:43)
[2024-02-27] MEDS ORDERED: HOME MED LIST COMPLETE! XX SCH (09:45)
[2024-02-27] MEDS ORDERED: LORazepam 2 MG TAB PO PRN ×2 (10:15→11:35)
[2024-02-27] MEDS ORDERED: MAALOX 30 ML SUSP *UDC PO PRN (11:35)
[2024-02-27] MEDS ORDERED: IBUPROFEN 400MG TAB PO PRN (11:35)
[2024-02-27] MEDS ORDERED: ALBUTEROL 90 MCG/ACT 8GM HFA INHALER INH PRN ×2 (11:35)
[2024-02-27] MEDS ORDERED: MOM 30ML SUSPENSION UDC PO PRN (11:35)
[2024-02-27] MEDS ORDERED: CREON-12 CAPSULE (PANCRELIPASE) PO SCH ×2 (11:35→12:30)
[2024-02-27] MEDS: NICOTINE 21MG/24HR 1 EA TRANSDERMAL TD ONE (11:43)
[2024-02-27] MEDS: ASCORBIC ACID 500 MG TAB PO SCH (13:43)
[2024-02-27] MEDS: ATORVASTATIN 20 MG TAB PO SCH (13:43)
[2024-02-27] MEDS: PANTOPRAZOLE 40MG TAB (PROTONIX) PO SCH (13:43)
[2024-02-27] MEDS: MULTIVITAMINS/MINERALS THERAP 1 TAB PO SCH (13:44)
[2024-02-27] MEDS: MAGNESIUM OXIDE 400MG TAB (MAG-OX) PO SCH (13:44)
[2024-02-27] MEDS: CREON-12 CAPSULE (PANCRELIPASE) PO SCH (13:44)
[2024-02-27 13:45] VITALS: BP 159/74; TEMP 98; O2SAT 98
[2024-02-27] MEDS: THIAMINE 100 MG TAB PO SCH (13:45)
[2024-02-27 14:00] VITALS: BP 159/74
[2024-02-27] MEDS: ACETAMINOPHEN 325 MG TAB PO PRN (16:31)
[2024-02-27] MEDS ORDERED: TAMSULOSIN 0.4 MG CAP PO SCH (21:00)
[2024-02-27] MEDS ORDERED: THIAMINE 100 MG TAB PO SCH (21:00)
[2024-02-27] MEDS: TAMSULOSIN 0.4 MG CAP PO SCH (21:08)
[2024-02-27] MEDS: traZODone 50 MG TAB PO PRN (21:08)
[2024-02-27 22:00] VITALS: BP 128/89
[2024-02-28 06:36] VITALS: BP 138/61
[2024-02-28 06:38] VITALS: BP 138/61; TEMP 97.2; O2SAT 98
[2024-02-28] MEDS ORDERED: MULTIVITAMINS/MINERALS THERAP 1 TAB PO SCH (09:00)
[2024-02-28] MEDS ORDERED: ASCORBIC ACID 500 MG TAB PO SCH (09:00)
[2024-02-28] MEDS ORDERED: PANTOPRAZOLE 40MG TAB (PROTONIX) PO SCH (09:00)
[2024-02-28] MEDS ORDERED: MAGNESIUM OXIDE 400MG TAB (MAG-OX) PO SCH (09:00)
[2024-02-28 09:20] VITALS: BP 138/61; TEMP 97.2; O2SAT 98
[2024-02-28] MEDS: NICOTINE 21MG/24HR 1 EA TRANSDERMAL TD PRN (12:12)
[2024-02-28] MEDS: LIDOCAINE 5% (LIDODERM) PATCH TD SCH ×3 (13:01→13:02)
[2024-02-28 14:00] VITALS: BP 138/61
[2024-02-28 15:15] VITALS: BP 122/80; TEMP 98.3; O2SAT 99
[2024-02-28] MEDS ORDERED: SODIUM CHLORIDE 5% OU PRN (16:05)
[2024-02-29] MEDS ORDERED: [UNRECOGNIZED DRUG - OTHER] OU (06:19)
[2024-02-29] MEDS ORDERED: LIDO5TD TD (06:19)
[2024-02-29 06:49] VITALS: BP 154/79; TEMP 97.8; O2SAT 97
[2024-02-29] MEDS ORDERED: LIDOCAINE 5% (LIDODERM) PATCH TD SCH (09:00)
== END 2024-02-29 13:13 | disposition home or self-care (01) | DRG 897 ==
LOC: M ED 03:18 → M ED INP 11:33 → M PSY 12:22
PROVIDERS: ADMIT Psychiatry & Neurology Psychiatry; ATTEND Psychiatry & Neurology Psychiatry
DX: F10.14 Alcohol abuse with alcohol-induced mood disorder (principal); R45.851 Suicidal ideations; K86.1 Other chronic pancreatitis; F10.120 Alcohol abuse with intoxication, uncomplicated; E78.5 Hyperlipidemia, unspecified; N40.0 Benign prostatic hyperplasia without lower urinary tract symptoms; F41.9 Anxiety disorder, unspecified; G89.29 Other chronic pain; M48.00 Spinal stenosis, site unspecified; F17.210 Nicotine dependence, cigarettes, uncomplicated; M54.9 Dorsalgia, unspecified; Z79.899 Other long term (current) drug therapy; Z82.49 Family history of ischemic heart disease and other diseases of the circulatory system

== ENCOUNTER → 2024-05-05 | Outpatient (CLI) | payer MEDICARE ==
[~2024-05-05] MED LIST changes: +CREO12CA PO; +FLOM0.4C39 PO; +K2 P1TAB PO; +LIDO5TD TD; +MAGN400C PO; +POTA99CA2 PO; +VITA100T91 PO; +VITA500C24 PO; +[UNRECOGNIZED DRUG - OTHER] OU
== END ==
LOC: M RAD 16:07
PROVIDERS: ATTEND Family Medicine
DX: F17.210 Nicotine dependence, cigarettes, uncomplicated (principal); Z12.2 Encounter for screening for malignant neoplasm of respiratory organs; R91.8 Other nonspecific abnormal finding of lung field; I77.810 Thoracic aortic ectasia; I25.10 Atherosclerotic heart disease of native coronary artery without angina pectoris

== ENCOUNTER → 2024-05-31 | Outpatient (CLI) | payer MEDICARE | LOC: M PLAIMG 08:45 | PROVIDERS: ATTEND Family Medicine | DX: R10.13 Epigastric pain (principal) ==

== ENCOUNTER → 2024-06-19 | Outpatient (CLI) | payer MEDICARE ==
[2024-06-19 12:42] LABS: HEMATOCRIT 44.7 % (42.0-52.0); HEMOGLOBIN 15.1 g/dl (13.5-17.5); MEAN CORPUSCULAR HEMOGLOBIN 32.3 pg (27.0-33.0); MEAN CORPUSCULAR HGB CONC 33.8 g/dl (32.0-36.5); MEAN CORPUSCULAR VOLUME 95.5 fl (80.0-96.0); PLATELET COUNT, AUTOMATED 277 10^3/uL (150-450); RED BLOOD COUNT 4.68 10^6/uL (4.30-6.10); WHITE BLOOD COUNT 8.1 10^3/uL (4.0-10.0)
[2024-06-19 13:09] LABS: LIPASE 61 U/L (12-53)
[2024-06-19 13:11] LABS: AMYLASE 157 U/L (30-118)
[2024-06-19 13:12] LABS: ALBUMIN 3.9 G/DL (3.2-5.2); ALKALINE PHOSPHATASE 64 U/L (40-129); ALT/SGPT 26 U/L (7.0-40); AST/SGOT 26 U/L (<34); BILIRUBIN,TOTAL 0.5 MG/DL (0.3-1.2); BLOOD UREA NITROGEN 20 MG/DL (9-23); CALCIUM LEVEL 9.6 MG/DL (8.5-10.1); CARBON DIOXIDE LEVEL 29 MMOL/L (20-31); CHLORIDE LEVEL 111 MMOL/L (98-107); CHOLESTEROL LEVEL 239 MG/DL (<200); CHOLESTEROL RISK RATIO 3.39 (<5); CREATININE FOR GFR 1.05 MG/DL (0.70-1.30); GLOMERULAR FILTRATION RATE > 60.0 (>56); GLUCOSE, FASTING 102 MG/DL (60-100); HDL CHOLESTEROL 70.3 MG/DL (>40); LDL CHOLESTEROL 152.3 MG/DL (<100); NON-HDL-C 168.7 MG/DL; POTASSIUM SERUM 4.9 MMOL/L (3.5-5.1); SODIUM LEVEL 145 MMOL/L (136-145); TOTAL PROTEIN 7.1 G/DL (5.7-8.2); TRIGLYCERIDES LEVEL 82 MG/DL (<150)
== END ==
LOC: M WUC 10:24
PROVIDERS: ATTEND Family Medicine
DX: R10.13 Epigastric pain (principal); K22.70 Barrett's esophagus without dysplasia; E78.00 Pure hypercholesterolemia, unspecified

== ENCOUNTER → 2024-12-20 | Outpatient (CLI) | payer MEDICARE ==
[~2024-12-20] MED LIST changes: -FLOM0.4C39 PO; +ISOVUE-370 76% 100 ML VIAL As Ordered ONE; +SODI5OPD OU; +TAMS-18 PO; -[UNRECOGNIZED DRUG - OTHER] OU
== END ==
LOC: M RAD 12:50
DX: K86.1 Other chronic pancreatitis (principal); R13.10 Dysphagia, unspecified; R19.7 Diarrhea, unspecified; K22.70 Barrett's esophagus without dysplasia
CPT/HCPCS: 74177; Q9967

== ENCOUNTER → 2025-01-03 | Outpatient (CLI) | payer MEDICARE ==
[~2025-01-03] MED LIST changes: -ISOVUE-370 76% 100 ML VIAL As Ordered ONE
== END ==
LOC: M WUC 11:01
PROVIDERS: ATTEND Nurse Practitioner Family
DX: M54.16 Radiculopathy, lumbar region (principal)

== ENCOUNTER → 2025-02-21 | Outpatient (CLI) | payer MEDICARE | LOC: M PLAIMG 13:41 | PROVIDERS: ATTEND Nurse Practitioner Family | DX: M54.16 Radiculopathy, lumbar region (principal); M79.18 Myalgia, other site; Z98.1 Arthrodesis status ==